=== PATIENT | female | born 1985 | race Caucasian/White ===

== ENCOUNTER 2017-02-16 22:42 | Emergency (ER) | payer OTHER ==
[2017-02-16] MEDS ORDERED: SUBLIMAZE 100 MCG/2 ML IV ONE (22:48)
[2017-02-16] MEDS ORDERED: Sodium Chloride 0.9% 1000 ML 1,000 ML IV STA (22:48)
[2017-02-16] MEDS ORDERED: Sodium Chloride 0.9% 1000 ML 1,000 ML ONE (22:55)
[2017-02-16] MEDS ORDERED: SUBLIMAZE 100 MCG/2 ML ONE (22:56)
[2017-02-16 23:13] LABS: Mean Cell Volume 93.6 fl (78-100); Mean Corpuscular Hemoglobin 31.6 pg (26-32); Mean Platelet Volume 10.3 fl (6-9.5); Platelet Count 193 K/mm3 (150-450); Red Blood Count 4.08 M/mm3 (4.1-5.4); Red Cell Distribution Width 13.2 % (11.5-14.0); White Blood Count 10.8 K/mm3 (4.0-10.5)
--- NOTE | 2017-02-16 23:22 | ERPHSYRPT ---
- History of Present Illness Time Seen by Provider: 02/16/17 23:20 Source: patient Exam Limitations: no limitations Patient Subjective Stated Complaint: Pt sts vaginal bleeding all day. Sts that it has ranged from clear liquid with foul odor to dark red. Sts has already had problem with passing clot and has been seen by Dr. Phipps. Pt is . Pt sts cramping also low in pelvis. Pain 7/10, intermittent in nature. Sts urinating more than normal, sts copious foul discharge. Sts last sexual encounter 1 week ago. Pt eating upon triage, asked to stop until provider OK' ed food and drink. Triage Nursing Assessment: Pt alert, oriented, answers all questions appropriately. Skin p/w/d, resps non-labored. Pt ambulatory from wheelchair to bed and around room without difficulty. Pt appears anxious. Pt lung sounds CTA bilat. ABD SNT x 4 quadrants, pain with palpation noted suprapubic area. Physician History: Pt sts vaginal bleeding all day. Sts that it has ranged from clear liquid with foul odor to dark red. Sts has already had problem with passing clot and has been seen by Dr. Phipps. Pt is . Pt sts cramping also low in pelvis. Pain 7/10, intermittent in nature. Sts urinating more than normal, sts copious foul discharge. Sts last sexual encounter 1 week ago. Timing/Duration: today Quality: cramping Onset Location: suprapubic Pain Radiation: none Severity of Pain-Max: moderate Severity of Pain-Current: moderate Sexual intercourse history: non-contributory Modifying Factors: Improves With: nothing Associated Symptoms: abdominal pain, vaginal discharge, vaginal fluid leakage, No fever, No chills, No nausea, No vomiting, No loss of bladder control, No lower back pain Allergies/Adverse Reactions: No Known Drug Allergies Allergy (Unverified 10/15/12 00:33) Home Medications: No Home Meds 10/15/12 [History] Hx Tetanus, Diphtheria Vaccination/Date Given: Yes (2006) Hx Influenza Vaccination/Date Given: No Hx Pneumococcal Vaccination/Date Given: No - Review of Systems Constitutional: No Fever, No Chills Eyes: No Symptoms Ears, Nose, & Throat: No Symptoms Respiratory: No Cough, No Dyspnea Cardiac: No Chest Pain, No Edema, No Syncope Abdominal/Gastrointestinal: Abdominal Pain, No Nausea, No Vomiting, No Diarrhea Genitourinary Symptoms: No Dysuria Musculoskeletal: No Back Pain, No Neck Pain Skin: No Rash Neurological: No Dizziness, No Focal Weakness, No Sensory Changes Psychological: No Symptoms Endocrine: No Symptoms All Other Systems: Reviewed and Negative - Past Medical History Pertinent Past Medical History: Yes Respiratory History: Pneumonia Other Medical History: Hepatitis C - Past Surgical History Past Surgical History: No - Social History Smoking Status: Current every day smoker Exposure to second hand smoke: No Drug Use: marijuana Patient Lives Alone: No - Female History Hx Last Menstrual Period: september Expected Date of Delivery: 08/08/17 - Nursing Vital Signs Nursing Vital Signs: Initial Vital Signs Temperature 97.4 F Temperature Source Oral Pulse Rate 91 Respiratory Rate 16 Blood Pressure [Right Arm] 115/70 Pain Intensity 7 - Physical Exam General Appearance: no apparent distress, alert Eye Exam: PERRL/EOMI, eyes nml inspection Ears, Nose, Throat Exam: normal ENT inspection, TMs normal, pharynx normal, moist mucous membranes Neck Exam: normal inspection, non-tender, supple, full range of motion Respiratory Exam: normal breath sounds, lungs clear, No respiratory distress Cardiovascular Exam: regular rate/rhythm, normal heart sounds, normal peripheral pulses Gastrointestinal/Abdomen Exam: normal bowel sounds, tenderness, No mass Back Exam: normal inspection, normal range of motion, No CVA tenderness, No vertebral tenderness Extremity Exam: normal inspection, normal range of motion, pelvis stable Neurologic Exam: alert, oriented x 3, cooperative, sequins stringer II-XII nml as tested, normal mood/affect, sensation nml, No motor deficits Skin Exam: normal color, warm, dry Lymphatic Exam: No adenopathy SpO2: 99 Oxygen Delivery: Room Air - Course Nursing assessment & vital signs reviewed: Yes Ordered Tests: Active Orders 24 hr Category Date Time Status BMP Stat Lab 02/16/17 23:12 Completed CBC W DIFF Stat Lab 02/16/17 23:12 Completed HCG QUALITATIVE,SERUM Stat Lab 02/16/17 23:12 Completed HCG, Quantitative (Inhouse) Stat Lab 02/16/17 23:12 Received Manual Differential NC Stat Lab 02/16/17 23:12 Completed UA W/ MICROSCOPIC Stat Lab 02/16/17 23:12 Completed Urine Triage Profile Stat Lab 02/16/17 23:12 Completed Medication Summary Discontinued Medications Generic Name Dose Route Start Last Admin Trade Name Freq PRN Reason Stop Dose Admin Ceftriaxone Sodium 1,000 mg 02/16/17 23:45 Rocephin 1000 Mg Inj IM 02/16/17 23:46 STAT ONE Fentanyl Citrate 50 mcg 02/16/17 22:48 02/16/17 22:57 Sublimaze 100 Mcg/2 Ml IV 02/16/17 22:49 50 mcg STAT ONE Administration Fentanyl Citrate Confirm 02/16/17 22:56 Sublimaze 100 Mcg/2 Ml Administered 02/16/17 22:57 Dose 100 mcg .ROUTE .STK-MED ONE Sodium Chloride 1,000 mls @ 999 mls/hr 02/16/17 22:48 02/16/17 22:57 Sodium Chloride 0.9% 1000 Ml IV 02/16/17 23:48 999 mls/hr .Q1H1M STA Administration Sodium Chloride Confirm 02/16/17 22:55 Sodium Chloride 0.9% 1000 Ml Administered 02/16/17 22:56 Dose 1,000 mls @ ud .ROUTE .STK-MED ONE Lab/Rad Data: Laboratory Result Diagrams 02/16/17 23:12 02/16/17 23:12 Laboratory Results 02/16/17 02/16/17 02/16/17 Range/Units 23:12 23:12 23:12 WBC (4.0-10.5) K/mm3 RBC (4.1-5.4) M/mm3 Hgb (12.0-16.0) gm/dl Hct (35-47) % MCV (78-100) fl MCH (26-32) pg MCHC (32-36) g/dl RDW (11.5-14.0) % Plt Count (150-450) K/mm3 MPV (6-9.5) fl Segmented Neutrophils (36.0-66.0) % Band Neutrophils (0.0-2.0) % Lymphocytes (Manual) (24-44) % Metamyelocytes % Differential Comment Platelet Estimate (NORMAL) Sodium (136-145) mEq/L Potassium (3.5-5.1) mEq/L Chloride (98-107) mEq/L Carbon Dioxide (21-32) mEq/L Anion Gap (5-15) MEQ/L BUN (9-20) mg/dL Creatinine (0.55-1.30) mg/dl Estimated GFR ML/MIN Glucose (70-110) MG/DL Calcium (8.5-10.1) mg/dL Serum , Qual POSITIVE (Negative) Ur Collection Type CLEAN CATCH Urine Color YELLOW (YELLOW) Urine Appearance CLEAR (CLEAR) Urine pH 7.0 (5-6) Ur Specific [place] 1.015 (1.005-1.025) Urine Protein NEGATIVE (Negative) Urine Glucose (UA) NEGATIVE (NEGATIVE) mg/dL Urine Ketones NEGATIVE (NEGATIVE) Urine Nitrite NEGATIVE (NEGATIVE) Urine Bilirubin NEGATIVE (NEGATIVE) Urine Urobilinogen 4 (0-1) mg/dL Urine WBC (Auto) SMALL (NEGATIVE) Urine RBC (Auto) NEGATIVE (0-5) Juaquin/ul Urine Microscopic WBC 5-10 (0-5) /HPF Ur Epithelial Cells MODERATE (FEW) /HPF Urine Bacteria FEW (NEGATIVE) /HPF Urine Opiates Level NEG. (NEGATIVE) Ur Methadone NEG. (NEGATIVE) Urine Barbiturates NEG. (NEGATIVE) Ur Phencyclidine (PCP) NEG. (NEGATIVE) Urine Amphetamine NEG. (NEGATIVE) U Benzodiazepine Level NEG. (NEGATIVE) Urine Cocaine NEG. (NEGATIVE) Urine Marijuana (THC) POS. (NEGATIVE) Specimen Received [id number] 02/16/17 02/16/17 Range/Units 23:12 23:12 WBC 10.8 H (4.0-10.5) K/mm3 RBC 4.08 L (4.1-5.4) M/mm3 Hgb 12.9 (12.0-16.0) gm/dl Hct 38.2 (35-47) % MCV 93.6 (78-100) fl MCH 31.6 (26-32) pg MCHC 33.8 (32-36) g/dl RDW 13.2 (11.5-14.0) % Plt Count 193 (150-450) K/mm3 MPV 10.3 H (6-9.5) fl Segmented Neutrophils 78 H (36.0-66.0) % Band Neutrophils 10 H (0.0-2.0) % Lymphocytes (Manual) 11 L (24-44) % Metamyelocytes 1 % Differential Comment NORMAL Platelet Estimate NORMAL (NORMAL) Sodium 141 (136-145) mEq/L Potassium 3.8 (3.5-5.1) mEq/L Chloride 106 (98-107) mEq/L Carbon Dioxide 22.8 (21-32) mEq/L Anion Gap 15.8 H (5-15) MEQ/L BUN 8 L (9-20) mg/dL Creatinine 0.71 (0.55-1.30) mg/dl Estimated GFR > 60 ML/MIN Glucose 95 (70-110) MG/DL Calcium 8.0 L (8.5-10.1) mg/dL Serum , Qual (Negative) Ur Collection Type Urine Color (YELLOW) Urine Appearance (CLEAR) Urine pH (5-6) Ur Specific [place] (1.005-1.025) Urine Protein (Negative) Urine Glucose (UA) (NEGATIVE) mg/dL Urine Ketones (NEGATIVE) Urine Nitrite (NEGATIVE) Urine Bilirubin (NEGATIVE) Urine Urobilinogen (0-1) mg/dL Urine WBC (Auto) (NEGATIVE) Urine RBC (Auto) (0-5) Juaquin/ul Urine Microscopic WBC (0-5) /HPF Ur Epithelial Cells (FEW) /HPF Urine Bacteria (NEGATIVE) /HPF Urine Opiates Level (NEGATIVE) Ur Methadone (NEGATIVE) Urine Barbiturates (NEGATIVE) Ur Phencyclidine (PCP) (NEGATIVE) Urine Amphetamine (NEGATIVE) U Benzodiazepine Level (NEGATIVE) Urine Cocaine (NEGATIVE) Urine Marijuana (THC) (NEGATIVE) Specimen Received - Progress Progress: improved Air Movement: good Blood Culture(s) Obtained: No Antibiotics given: Yes Counseled pt/family regarding: lab results, diagnosis, need for follow-up - Departure Time of Disposition: 23:54 Departure Disposition: Home Clinical Impression: Vaginal bacteriosis, Vaginal bleeding before 22 weeks gestation Qualifiers: Weeks of gestation: 18 weeks Qualified Code(s): Z3A.18 - 18 weeks gestation of Condition: Stable Critical Care Time: Yes Critical Care Time(excluding separately billable procedures): 30-74 minutes Referrals: FIDEL PHIPPS [Primary Care Provider] - Additional Instructions: Please take ample rest. Please drink lots of by mouth water. Do not use marijuana and please do not smoke as you are . You have some infection in Your bladder and vagina, so we have given you antibiotics. Please continue oral antibiotic and finish it for 10 days. Follow-up with your PASSPORT SUPPORT MANAGER physician in next 1-2 days. If symptoms get worse. Please prefer to go to the hospital where your PACKING TRACTOR MACHINE OPERATOR. physician is available. Prescriptions: Cephalexin Mh 500 mg [Keflex 500 mg] 500 mg PO Q6H #40 capsule
[2017-02-16 23:33] LABS: ANION GAP 15.8 MEQ/L (5-15); BLOOD UREA NITROGEN 8 mg/dL (9-20); CHLORIDE 106 mEq/L (98-107); Carbon Dioxide 22.8 mEq/L (21-32); Glucose 95 MG/DL (70-110); Potassium 3.8 mEq/L (3.5-5.1); SODIUM 141 mEq/L (136-145)
[2017-02-16 23:41] LABS: Collection Type CLEAN CATCH
[2017-02-16 23:42] LABS: COMPLETE URINE MICROSCOPIC? YES
[2017-02-16 23:43] LABS: Bacteria FEW /HPF (NEGATIVE); Epithelial Cells MODERATE /HPF (FEW)
[2017-02-16] MEDS ORDERED: Rocephin 1000 MG INJ IM ONE (23:45)
[2017-02-16 23:47] LABS: BAND 10 % (0.0-2.0); Metamyelocyte 1 %; Platelet Estimate NORMAL (NORMAL); Total Cells Counted 100
[2017-02-16] MEDS ORDERED: XYLOCAINE 1% HCL 20 ML MDV ONE (23:52)
[2017-02-16] MEDS ORDERED: Rocephin 1000 MG INJ ONE (23:52)
[2017-02-17] VITALS: BP 104/71; PULSE 80; O2SAT 99
[2017-02-17 00:13] LABS: Bacteria Few; Clue Cells None Seen; Trichomonas None Seen; Yeast None Seen
[2017-02-17 01:41] LABS: CHLAMYDIA DNA NEGATIVE
== END 2017-02-17 00:05 | disposition home or self-care (01) ==
LOC: ED 22:42 → SUPCPDRO 22:42 → ED 02-17 00:05
DX: O46.8X2 Other antepartum hemorrhage, second trimester (principal); O23.592 Infection of other part of genital tract in pregnancy, second trimester; N76.0 Acute vaginitis; Z3A.18 18 weeks gestation of pregnancy
CPT/HCPCS: 36000; 36415; 80048; 80307; 81000; 84702; 84703; 85025; 87210; 87490; 87590; 93041; 96360; 96372; 96374; 96375; 99284; 99285; J0696; J3010

== ENCOUNTER 2017-02-19 09:35 | Emergency (ER) | payer OTHER ==
[2017-02-19] MEDS ORDERED: Zofran 4 MG/2 ML VIAL ONE (10:00)
[2017-02-19] MEDS ORDERED: Hydromorphone 1 mg/ml Ampule ONE ×3 (10:01→13:23)
[2017-02-19] MEDS ORDERED: Sodium Chloride 0.9% 1000 ML 1,000 ML ONE ×2 (10:04→12:57)
[2017-02-19 10:27] LABS: Mean Cell Volume 92.6 fl (78-100); Mean Corpuscular Hemoglobin 31.5 pg (26-32); Mean Platelet Volume 11.2 fl (6-9.5); Platelet Count 171 K/mm3 (150-450); Red Blood Count 4.03 M/mm3 (4.1-5.4); Red Cell Distribution Width 13.3 % (11.5-14.0)
--- NOTE | 2017-02-19 10:30 | ERPHSYRPT ---
- History of Present Illness Time Seen by Provider: 02/19/17 09:43 Source: patient, family Exam Limitations: clinical condition Patient Subjective Stated Complaint: PT STATES SHE IS APPOX 17 WEEKS STATES. THAT SHE WOKE UP SOAKED IN BLOOD STATES WENT TO THE BATHROOM AND "PASSED THIS IT FEEL LIKE CHICKEN LIVER". PT CRYING STASTES IT HURTS Triage Nursing Assessment: PT ALERT WARM AND DRY PT MOANING IN PAIN CONTINUING TO BLEED. Physician History: Confusion regarding this pt dates. She states her LNMP was 11. .2015, which would make her 20+6 weeks . But she claims she was at [facility] 2 weeks ago and was suspected to be at 16 weeks. She was awakened by gushing of blood this morning and contraction-type lower abd pain. I now have the records from from [facility] documenting 14 weeks on 02.09.2017, which would make her 16+2 weeks now. These correspond with an EDC of .. Timing/Duration: today Activites at Onset: sleep Quality: sharpness Onset Location: suprapubic Pain Radiation: none Severity of Pain-Max: severe Severity of Pain-Current: severe Prior abdominal problems: UTI Modifying Factors: Improves With: nothing Associated Symptoms: abdominal pain Allergies/Adverse Reactions: No Known Drug Allergies Allergy (Unverified 10/15/12 00:33) Home Medications: No Home Meds 10/15/12 [History] Hx Tetanus, Diphtheria Vaccination/Date Given: Yes Hx Influenza Vaccination/Date Given: No Hx Pneumococcal Vaccination/Date Given: No - Review of Systems Constitutional: No Symptoms Eyes: No Symptoms Ears, Nose, & Throat: No Symptoms Respiratory: No Symptoms Cardiac: No Symptoms Abdominal/Gastrointestinal: Abdominal Pain Genitourinary Symptoms: Dysuria, Hematuria, , Vaginal Bleeding Skin: No Symptoms Neurological: No Symptoms Psychological: No Symptoms Endocrine: No Symptoms Immunological/Allergic: No Symptoms - Past Medical History Pertinent Past Medical History: Yes Respiratory History: Pneumonia Female Reproductive Disorders: Abnormal Uterine Bleeding Other Medical History: Hepatitis C - Past Surgical History Past Surgical History: No - Social History Smoking Status: Current every day smoker How long have you smoked: 1/4 PPD Exposure to second hand smoke: Yes Drug Use: none Patient Lives Alone: No - Female History Hx Last Menstrual Period: NOV - Nursing Vital Signs Nursing Vital Signs: Initial Vital Signs Temperature 97.8 F Temperature Source Oral Pulse Rate 68 Respiratory Rate 18 Blood Pressure [Right Arm] 92/66 Pain Intensity 2 - Physical Exam General Appearance: severe distress Eye Exam: eyes nml inspection Ears, Nose, Throat Exam: normal ENT inspection, moist mucous membranes Neck Exam: normal inspection, non-tender, supple, full range of motion Respiratory Exam: normal breath sounds, lungs clear Cardiovascular Exam: regular rate/rhythm, normal heart sounds, normal peripheral pulses Gastrointestinal/Abdomen Exam: soft, normal bowel sounds Pelvic Exam: vaginal bleeding (copious BRB with contractions) Extremity Exam: normal inspection, normal range of motion, pelvis stable Neurologic Exam: alert, oriented x 3, cooperative Skin Exam: pale SpO2 Interpretation: normal SpO2: 98 Oxygen Delivery: Room Air - Course Nursing assessment & vital signs reviewed: Yes - Radiology Ultrasound Exam OB Ultrasound: Other (FHT 131. IUP with cervical stripe of 2.9 cm. ) Ordered Tests: Active Orders 24 hr Category Date Time Status OB >14 WKS 1st GESTATION [US] Stat Exams 02/19/17 10:18 Completed CBCD [CBC W DIFF] Stat Lab 02/19/17 10:22 Completed CMP Stat Lab 02/19/17 10:24 Completed Manual Differential NC Stat Lab 02/19/17 10:22 Completed Medication Summary Discontinued Medications Generic Name Dose Route Start Last Admin Trade Name Freq PRN Reason Stop Dose Admin Hydromorphone HCl Confirm 02/19/17 10:01 Hydromorphone 1 Mg/Ml Ampule Administered 02/19/17 10:02 Dose 1 mg .ROUTE .STK-MED ONE Hydromorphone HCl 1 mg 02/19/17 10:36 02/19/17 10:37 Hydromorphone 1 Mg/Ml Ampule IV 02/19/17 10:37 1 mg STAT ONE Administration Hydromorphone HCl Confirm 02/19/17 11:04 Hydromorphone 1 Mg/Ml Ampule Administered 02/19/17 11:05 Dose 1 mg .ROUTE .STK-MED ONE Hydromorphone HCl 1 mg 02/19/17 11:06 02/19/17 11:09 Hydromorphone 1 Mg/Ml Ampule IV 02/19/17 11:07 1 mg STAT ONE Administration Sodium Chloride Confirm 02/19/17 10:04 Sodium Chloride 0.9% 1000 Ml Administered 02/19/17 10:05 Dose 1,000 mls @ ud .ROUTE .STK-MED ONE Sodium Chloride Confirm 02/19/17 12:57 Sodium Chloride 0.9% 1000 Ml Administered 02/19/17 12:58 Dose 1,000 mls @ ud .ROUTE .STK-MED ONE Ondansetron HCl Confirm 02/19/17 10:00 Zofran 4 Mg/2 Ml Vial Administered 02/19/17 10:01 Dose 4 mg .ROUTE .STK-MED ONE Ondansetron HCl 4 mg 02/19/17 10:36 02/19/17 10:37 Zofran 4 Mg/2 Ml Vial IV 02/19/17 10:37 4 mg STAT ONE Administration Lab/Rad Data: Laboratory Result Diagrams 02/19/17 10:22 02/19/17 10:24 Laboratory Results 02/19/17 02/19/17 Range/Units 10:24 10:22 WBC 13.0 H (4.0-10.5) K/mm3 RBC 4.03 L (4.1-5.4) M/mm3 Hgb 12.7 (12.0-16.0) gm/dl Hct 37.3 (35-47) % MCV 92.6 (78-100) fl MCH 31.5 (26-32) pg MCHC 34.0 (32-36) g/dl RDW 13.3 (11.5-14.0) % Plt Count 171 (150-450) K/mm3 MPV 11.2 H (6-9.5) fl Segmented Neutrophils 75 H (36.0-66.0) % Lymphocytes (Manual) 25 (24-44) % Differential Comment NORMAL Platelet Estimate NORMAL (NORMAL) Sodium 140 (136-145) mEq/L Potassium 4.0 (3.5-5.1) mEq/L Chloride 104 (98-107) mEq/L Carbon Dioxide 22.0 (21-32) mEq/L Anion Gap 18.0 H (5-15) MEQ/L BUN 7 L (9-20) mg/dL Creatinine 0.55 (0.55-1.30) mg/dl Estimated GFR > 60 ML/MIN Glucose 106 (70-110) MG/DL Calcium 8.4 L (8.5-10.1) mg/dL Total Bilirubin < 0.1 L (0.2-1.0) mg/dL AST 18 (15-37) U/L ALT 15 (12-78) U/L Alkaline Phosphatase 71 (46-116) U/L Serum Total Protein 6.8 (6.4-8.2) gm/dL Albumin 2.7 L (3.4-5.0) g/dL - Progress Progress: unchanged Air Movement: good Discussed with Dr.: Other (Dr. Phipps/OB OOT. I spoke with Susie Chase/SUPERVISOR ELECTRONICS TESTING who advises F/U with Dr. Isabel at [facility] or Hospitalist at [place].) Counseled pt/family regarding: need for follow-up - Departure Time of Disposition: 13:00 (Multiple calls to [facility] for OB Hospitalist over 2 hours. Finally received call back from Dr. Jazmine Coker/OB Hospitalist who accepts pt. in transfer to OB ED.) Departure Disposition: Transfer Clinical Impression: Vaginal bleeding before 22 weeks gestation, Incomplete miscarriage with blood clot Qualifiers: Weeks of gestation: 15 weeks Qualified Code(s): Z3A.15 - 15 weeks gestation of Condition: Critical Critical Care Time: Yes Critical Care Time(excluding separately billable procedures): 75-104 minutes Referrals: FIDEL PHIPPS [Primary Care Provider] - Instructions: Threatened
[2017-02-19] MEDS ORDERED: Zofran 4 MG/2 ML VIAL IV ONE (10:36)
[2017-02-19] MEDS ORDERED: Hydromorphone 1 mg/ml Ampule IV ONE ×3 (10:36→13:22)
[2017-02-19 10:53] LABS: Platelet Estimate NORMAL (NORMAL); Total Cells Counted 100
[2017-02-19 11:00] LABS: ALBUMIN 2.7 g/dL (3.4-5.0); ALKALINE PHOSPHATASE 71 U/L (46-116); BLOOD UREA NITROGEN 7 mg/dL (9-20); CHLORIDE 104 mEq/L (98-107); Glucose 106 MG/DL (70-110); SGOT/AST 18 U/L (15-37); SGPT/ALT 15 U/L (12-78); SODIUM 140 mEq/L (136-145); Total Protein 6.8 gm/dL (6.4-8.2)
[2017-02-19 11:05] LABS: BILIRUBIN,TOTAL < 0.1 mg/dL (0.2-1.0)
--- NOTE | 2017-02-19 11:14 | XRAY ---
Indication: Heavy bleeding. Two-dimensional transabdominal OB ultrasound performed. Comparison: None There is a single intrauterine currently in breech presentation. heart rate is 131 bpm. Placenta is posterior fundal without abruption/previa. Cervix is essentially closed and measures 2.9 cm in length. There are small hypoechogenicities in the channel of the cervix, presumed blood products. BPD measures 3.10 cm corresponding to 15 weeks 5 days. HC measures 11.90 cm corresponding to 15 weeks 6 days. AC measures 10.61 cm corresponding to 16 weeks 4 days. FL measures 1.77 cm corresponding to 15 weeks 2 days. [place] is 3 cm. Impression: Single intrauterine with mean gestational age 15 weeks 6 days and heart rate 131 bpm. Expected date confinement is August 07, 2017. Oligohydramnios. Hypoechogenicities in the cervical channel presumed blood products.
[2017-02-19 13:49] VITALS: BP 136/89; PULSE 70; O2SAT 100
== END 2017-02-19 13:51 | disposition short-term general hospital (02) ==
LOC: ED 09:35
DX: O46.8X2 Other antepartum hemorrhage, second trimester (principal); O03.39 Incomplete spontaneous abortion with other complications; Z3A.15 15 weeks gestation of pregnancy
CPT/HCPCS: 36000; 36415; 76805; 80053; 85025; 99285; J1170; J2405

== ENCOUNTER 2022-11-29 15:16 | Emergency (ER) | payer OTHER ==
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
[2022-11-29 15:44] VITALS: BP 154/96; PULSE 87; O2SAT 100
[2022-11-29 16:19] LABS: Appearance CLEAR (CLEAR); Bilirubin NEGATIVE (NEGATIVE); Glucose NEGATIVE (NEGATIVE); Ketones NEGATIVE (NEGATIVE); Nitrite NEGATIVE (NEGATIVE); Protein,Urine Dip NEGATIVE (Negative); RBC NEGATIVE Ery/ul (0-5); Urobilinogen 0.2 mg/dL (0-1)
[2022-11-29 16:20] LABS: Dipstick done @ ? MAIN LAB
[2022-11-29 16:23] LABS: Bacteria RARE /HPF (NEGATIVE); Epithelial Cells RARE /HPF (FEW); RBC 0-2 /HPF (0-2)
[2022-11-29 16:24] LABS: Urine Cultured Indicated? NO
[2022-11-29 16:35] LABS: Absolute Neutrophil Ct (ANC) 7.35 x10^3/uL (1.4-6.9); Basophil (Absolute #) 0.04 x10^3/uL (0-0.4); Eosinophil % 1.1 % (0.00-5.0); Hematocrit 49.6 % (35-47); Lymphocyte (Absolute #) 1.03 x10^3/uL (1.0-4.6); Lymphocytes % 11.3 % (24.0-44.0); Mean Corpuscular Hemoglobin 28.7 pg (26-32); Mean Corpuscular Hgb Concent. 30.2 g/dL (32-36); Mean Platelet Volume 9.8 fL (7.5-11.0); Monocyte (Absolute #) 0.55 x10^3/uL (0.0-1.3); Monocytes % 6.1 % (0.0-12.0); Neutrophil % 80.9 % (36.0-66.0); Platelet Count 324 x10^3/uL (150-450); Red Blood Count 5.22 x10^6/uL (4.1-5.4); Red Cell Distribution Width 14.8 % (11.5-14.0); White Blood Count 9.1 x10^3/uL (4.0-10.5)
--- NOTE | 2022-11-29 16:37 | XRAY ---
Indication: Swelling. Two-dimensional sonogram and color Doppler imaging of the major venous vessels of the right leg performed. Comparison: None No thrombus seen in the examined deep venous vessels of the right leg including greater saphenous vein. Veins demonstrate normal compressibility. Venous waveforms are normal with and without augmentation. Impression: Right leg negative for DVT.
[2022-11-29 16:49] LABS: ACETAMINOPHEN < 10 ug/ml (10-30); ALBUMIN 4.7 g/dL (3.5-5.0); ALKALINE PHOSPHATASE 159 U/L (38-126); ANION GAP 11.7 MEQ/L (5-15); BLOOD UREA NITROGEN 14 mg/dL (7-17); CHLORIDE 104 mmol/L (98-107); Calcium 9.3 mg/dL (8.4-10.2); Carbon Dioxide 24 mmol/L (22-30); Creatinine 1 0.58 mg/dL (0.52-1.04); EST GLOMERULAR FILTRATION RATE > 60.0 ML/MIN; ETHYL ALCOHOL < 10 mg/dL (0-10); Glucose 90 mg/dL (74-106); Potassium 3.5 mmol/L (3.5-5.1); SALICYLATE < 1.0 mg/dL (2-20); SGOT/AST 21 U/L (14-36); SGPT/ALT 14 U/L (0-35); SODIUM 137 mmol/L (137-145); Total Protein 8.3 g/dL (6.3-8.2)
[2022-11-29] MEDS ORDERED: BACTRIM DS TABLET PO ONE ×2 (17:09→17:24)
[2022-11-29] MEDS ORDERED: TYLENOL 325 MG PO STA (17:36)
[2022-11-29] MEDS ORDERED: TYLENOL 325 MG ONE (17:37)
[2022-11-29 17:53] LABS: Barbiturate,Urine NEGATIVE (NEGATIVE); Benzodiazepine,Urine NEGATIVE (NEGATIVE); Cocaine,Urine NEGATIVE (NEGATIVE); Methadone,Urine NEGATIVE (NEGATIVE); Opiate,Urine NEGATIVE (NEGATIVE); PCP,Urine NEGATIVE (NEGATIVE); THC,Urine POSITIVE (NEGATIVE)
[2022-11-29 18:18] LABS: Amphetamine,Urine POSITIVE (NEGATIVE)
== END 2022-11-29 18:49 | disposition home or self-care (01) ==
LOC: EEVIPCON 15:16 → ED 15:16
DX: S81.801A Unspecified open wound, right lower leg, initial encounter (principal); N39.0 Urinary tract infection, site not specified; F15.10 Other stimulant abuse, uncomplicated; F12.10 Cannabis abuse, uncomplicated; Z72.0 Tobacco use
CPT/HCPCS: 36415; 80053; 80307; 81015; 84703; 85025; 87070; 93971; 99283; G0480; A9270-GY